=== PATIENT | male | born 1955 | race Caucasian/White ===

== ENCOUNTER 2020-03-08 23:56 | Emergency (ER) | payer OTHER ==
[~2020-03-08] VITALS: Ht 175.3 cm; Wt 85.3 kg
[2020-03-09] VITALS: Ht 175.3 cm; Wt 85.3 kg
[2020-03-09 00:42] VITALS: BP 132/96
== END 2020-03-09 00:42 | disposition home or self-care (01) ==
LOC: ED 23:56
DX: N39.0 Urinary tract infection, site not specified (principal)